=== PATIENT | female | born 1975 | race Caucasian/White ===

== ENCOUNTER → 2019-07-31 08:30 | Outpatient (CLI) | payer BC, SELFPAY ==
--- NOTE | 2019-07-31 | DI.MG.S_ITS ---
BILATERAL DIGITAL SCREENING MAMMOGRAM 3D/2D WITH CAD: 07/31/2019 CLINICAL: Routine screening. Comparison is made to exam dated: 08/15/2017 [facility]. The tissue of both breasts is extremely dense, which lowers the sensitivity of mammography. Current study was also evaluated with a Computer Aided Detection (CAD) system. There are regional calcifications in the right breast at 11 o'clock middle depth. There are grouped calcifications in the left breast at 4 o'clock posterior depth. No other significant masses or calcifications are seen in either breast. IMPRESSION: INCOMPLETE: NEEDS ADDITIONAL IMAGING EVALUATION The regional calcifications in the right breast at 11 o'clock middle depth are indeterminate. Spot magnification views are recommended. The grouped calcifications in the left breast at 4 o'clock posterior depth are indeterminate. Spot magnification views are recommended. This exam was interpreted at Station ID: [id number]. NOTE: For mammograms, a report in lay terms will be sent to the patient. Approximately 15% of breast malignancies will not be visualized mammographically. In the management of a palpable breast mass, a negative mammogram must not discourage biopsy of a clinically suspicious lesion. Electronically Signed By: Melita covarrubias/matt:07/31/2019 09:30:51 letter sent: Additional Imaging Needed ACR BI-RADS Category 0: Incomplete 3340F
== END ==
PROVIDERS: PCP Family Medicine; Visit Provider Family Medicine
DX: Z12.31 Encounter for screening mammogram for malignant neoplasm of breast (principal)
CPT/HCPCS: 77063; 77067

== ENCOUNTER → 2019-08-19 14:05 | Outpatient (CLI) | payer BC, SELFPAY ==
--- NOTE | 2019-08-19 | DI.MG.S_ITS ---
BILATERAL DIGITAL DIAGNOSTIC MAMMOGRAM 3D/2D WITH ADDITIONAL VIEWS: 08/19/2019 CLINICAL: Bilateral Additional evaluation requested from prior study. Comparison is made to exams dated: 07/31/2019 mammogram and 08/15/2017 mammogram - [facility]. The tissue of both breasts is extremely dense, which lowers the sensitivity of mammography. There are grouped fine punctate calcifications in the right breast at 12 o'clock middle depth. There are regional fine calcifications in the left breast at 4 o'clock posterior depth. No other significant masses or calcifications are seen in either breast. IMPRESSION: PROBABLY BENIGN The grouped fine punctate calcifications in the right breast at 12 o'clock middle depth resemble milk of calcium and are probably benign. A follow-up mammogram in 6 months is recommended. The regional fine calcifications in the left breast at 4 o'clock posterior depth are probably benign. A follow-up in 6 months is recommended. A follow-up mammogram in 6 months is recommended to demonstrate stability. This exam was interpreted at Station ID: [id number]. NOTE: For mammograms, a report in lay terms will be sent to the patient. Approximately 15% of breast malignancies will not be visualized mammographically. In the management of a palpable breast mass, a negative mammogram must not discourage biopsy of a clinically suspicious lesion. Electronically Signed By: Francisco muñoz/matt:08/19/2019 15:15:26 letter sent: Followup Recommended ACR BI-RADS Category 3: Probably benign [id number]
== END ==
PROVIDERS: PCP Family Medicine; Visit Provider Family Medicine
DX: R92.8 Other abnormal and inconclusive findings on diagnostic imaging of breast (principal); R92.1 Mammographic calcification found on diagnostic imaging of breast
CPT/HCPCS: 77066; G0279

== ENCOUNTER → 2020-03-18 09:11 | Outpatient (CLI) | payer BC, SELFPAY ==
--- NOTE | 2020-03-18 09:14 | DI.MG.S_ITS ---
BILATERAL DIGITAL DIAGNOSTIC MAMMOGRAM 3D/2D SHORT-TERM FOLLOW-UP: 03/18/2020 CLINICAL: Short term follow up bilaterally. Comparison is made to exams dated: 08/19/2019 mammogram, 07/31/2019 mammogram, and 08/15/2017 mammogram - [facility]. The tissue of both breasts is extremely dense, which lowers the sensitivity of mammography. There is a 1.8 cm irregular focal asymmetry with an obscured margin in the right breast at 1 o'clock middle depth. There also are stable regional calcifications in the right breast at 11 o'clock middle depth. There are stable grouped calcifications in the left breast at 4 o'clock posterior depth. No other significant masses or calcifications are seen in either breast. IMPRESSION: INCOMPLETE: NEEDS ADDITIONAL IMAGING EVALUATION The 1.8 cm irregular focal asymmetry in the right breast at 1 o'clock middle depth likely represents a cyst and is indeterminate. An ultrasound is recommended and is scheduled for 03/19/20. The stable regional calcifications in the right breast at 11 o'clock middle depth are probably benign. The stable grouped calcifications in the left breast at 4 o'clock posterior depth are probably benign. Future imaging is recommended as follows: 09/17/2020 mammogram follow up for the bilateral regional breast calcifications. This exam was interpreted at Station ID: [id number]. NOTE: For mammograms, a report in lay terms will be sent to the patient. Approximately 15% of breast malignancies will not be visualized mammographically. In the management of a palpable breast mass, a negative mammogram must not discourage biopsy of a clinically suspicious lesion. Electronically Signed By: Melita Murillo M.D. lk/:03/18/2020 10:26:12 ACR BI-RADS Category 0: Incomplete 3340F
== END ==
PROVIDERS: PCP Family Medicine; Referring Provider Family Medicine; Visit Provider Family Medicine
DX: R92.8 Other abnormal and inconclusive findings on diagnostic imaging of breast (principal); R92.1 Mammographic calcification found on diagnostic imaging of breast; N64.89 Other specified disorders of breast
CPT/HCPCS: 77066; G0279

== ENCOUNTER → 2020-03-19 12:31 | Outpatient (CLI) | payer BC, SELFPAY ==
--- NOTE | 2020-03-19 12:34 | DI.US.S_ITS ---
ULTRASOUND OF RIGHT BREAST: 03/19/2020 CLINICAL: Rt breast density on mammo. Comparison is made to exams dated: 03/18/2020 mammogram, 08/19/2019 mammogram, 07/31/2019 mammogram, and 08/15/2017 mammogram - [facility]. Real-time ultrasound of the right breast was performed. Leggett scale images of the real-time examination were reviewed. There is a benign irregular area of fibrocystic tissue in the right breast at 1 o'clock posterior depth. This correlates with mammography findings. Color flow imaging demonstrates that there is no vascularity present. IMPRESSION: BENIGN There is no sonographic evidence of malignancy. The irregular area of fibrocystic tissue in the right breast is consistent with fibrocystic change and is benign. Return to annual mammogram screening schedule for the right breast is recommended. Future imaging is recommended as follows: 09/17/2020 bilateral mammogram to follow up calcifications. This exam was interpreted at Station ID: [id number]. Electronically Signed By: Karma camarena/:03/22/2020 09:27:31 letter sent: Followup Recommended Ultrasound BI-RADS: 2 Benign
== END ==
PROVIDERS: PCP Family Medicine; Referring Provider Family Medicine; Visit Provider Family Medicine
DX: R92.8 Other abnormal and inconclusive findings on diagnostic imaging of breast (principal); N60.11 Diffuse cystic mastopathy of right breast
CPT/HCPCS: 76642

== ENCOUNTER → 2020-09-08 09:46 | Outpatient (CLI) | payer BC, SELFPAY ==
[2020-09-08 10:20] LABS: Cholesterol 226 mg/dL (140-199); HDL Cholesterol 64 mg/dL (40-60); LDL Cholesterol Calculated 150 mg/dL (<100); Triglycerides 62 mg/dL (35-150)
== END ==
PROVIDERS: PCP Family Medicine; Referring Provider Family Medicine; Visit Provider Family Medicine
DX: E78.5 Hyperlipidemia, unspecified (principal)
CPT/HCPCS: 36415; 80061

== ENCOUNTER → 2020-09-14 08:41 | Outpatient (CLI) | payer BC, SELFPAY ==
--- NOTE | 2020-09-14 08:42 | DI.MG.S_ITS ---
BILATERAL DIGITAL DIAGNOSTIC MAMMOGRAM 3D/2D SHORT-TERM FOLLOW-UP: 09/14/2020 CLINICAL: Short term follow up for bilateral breasts. Comparison is made to exams dated: 03/18/2020 mammogram, 08/19/2019 mammogram, 07/31/2019 mammogram, and 08/15/2017 mammogram - [facility]. The tissue of both breasts is extremely dense, which lowers the sensitivity of mammography. There are stable regional calcifications in the right breast at 11 o'clock middle depth. There are stable grouped calcifications in the left breast at 4 o'clock posterior depth. No other significant masses or calcifications are seen in either breast. IMPRESSION: PROBABLY BENIGN 1) Stable regional calcifications in the right breast at 11 o'clock middle depth are probably benign. 2) Stable grouped calcifications in the left breast at 4 o'clock posterior depth are probably benign. A follow-up mammogram in 6 months is recommended to demonstrate stability. Exam findings were conveyed to the patient. This exam was interpreted at Station ID: [id number]. NOTE: For mammograms, a report in lay terms will be sent to the patient. Approximately 15% of breast malignancies will not be visualized mammographically. In the management of a palpable breast mass, a negative mammogram must not discourage biopsy of a clinically suspicious lesion. Electronically Signed By: Jonn Day M.D. [facility] [place]/:09/14/2020 09:40:28 letter sent: Followup Recommended ACR BI-RADS Category 3: Probably benign 3343F
== END ==
PROVIDERS: PCP Family Medicine; Referring Provider Family Medicine; Visit Provider Family Medicine
DX: R92.8 Other abnormal and inconclusive findings on diagnostic imaging of breast (principal); R92.1 Mammographic calcification found on diagnostic imaging of breast
CPT/HCPCS: 77066; G0279

== ENCOUNTER → 2021-02-16 09:19 | Outpatient (CLI) | payer BC, SELFPAY ==
--- NOTE | 2021-02-16 09:20 | DI.MG.S_ITS ---
BILATERAL DIGITAL DIAGNOSTIC MAMMOGRAM 3D/2D SHORT-TERM FOLLOW-UP: 02/16/2021 CLINICAL: Short term follow up for bilateral breasts. Comparison is made to exams dated: 09/14/2020 mammogram, 03/18/2020 mammogram, 08/19/2019 mammogram, and 07/31/2019 mammogram - [facility]. The tissue of both breasts is extremely dense, which lowers the sensitivity of mammography. There are regional fine calcifications in the right breast at 11 o'clock middle depth. These are less prominent and decreased in number. There are grouped fine calcifications in the left breast at 4 o'clock posterior depth. These are less prominent and decreased in number. No other significant masses or calcifications are seen in either breast. IMPRESSION: INCOMPLETE: NEEDS ADDITIONAL IMAGING EVALUATION The regional fine calcifications in the right breast at 11 o'clock middle depth are probably benign. A follow-up in 6 months is recommended. The grouped fine calcifications in the left breast at 4 o'clock posterior depth are probably benign. A follow-up in 6 months is recommended. There is no abnormality seen in the right breast to correspond with the palpable abnormality in the superior lateral quadrant. Ultrasound is recommended for full evaluation of this area. This was performed immediately following this exam. Future imaging is recommended as follows: 08/18/2021 mammogram. This exam was interpreted at Station ID: [id number]. NOTE: For mammograms, a report in lay terms will be sent to the patient. Approximately 15% of breast malignancies will not be visualized mammographically. In the management of a palpable breast mass, a negative mammogram must not discourage biopsy of a clinically suspicious lesion. Electronically Signed By: Karma camarena/:02/16/2021 10:15:34 ACR BI-RADS Category 0: Incomplete 3340F
--- NOTE | 2021-02-16 12:42 | DI.US.S_ITS ---
LIMITED ULTRASOUND OF RIGHT BREAST: 02/16/2021 CLINICAL: Palpable area lower outer quadrant right breast. Comparison is made to exams dated: 02/16/2021 mammogram, 09/14/2020 mammogram, 03/19/2020 ultrasound, 03/18/2020 mammogram, 08/19/2019 mammogram, and 07/31/2019 mammogram - [facility]. Color flow and real-time ultrasound of the right breast lower outer quadrant were performed. Leggett scale images of the real-time examination were reviewed. There is a 0.5 cm x 0.9 cm x 0.6 cm cyst with a septated internal wall within a larger area of dense fibroglandular tissue in the right breast at 7 o'clock middle depth. Color flow imaging demonstrates that there is no vascularity present. IMPRESSION: PROBABLY BENIGN The 0.9 cm cyst in the right breast is consistent with a minimally complicated cyst and is probably benign. A follow-up right ultrasound in 6 months is recommended to demonstrate stability. Findings and recommendations were conveyed to the patient at time of exam. This exam was interpreted at Station ID: [id number]. Electronically Signed By: Karma camarena/:02/16/2021 13:48:43 letter sent: Followup Recommended Ultrasound BI-RADS: 3 Probably benign
== END ==
PROVIDERS: PCP Family Medicine; Referring Provider Family Medicine; Visit Provider Family Medicine
DX: R92.8 Other abnormal and inconclusive findings on diagnostic imaging of breast (principal); R92.1 Mammographic calcification found on diagnostic imaging of breast; N60.01 Solitary cyst of right breast
CPT/HCPCS: 76642; 77066; G0279

== ENCOUNTER → 2021-08-18 12:34 | Outpatient (CLI) | payer BC, SELFPAY ==
--- NOTE | 2021-08-18 12:35 | DI.US.S_ITS ---
LIMITED ULTRASOUND OF RIGHT BREAST: 08/18/2021 CLINICAL: Patient returns today to evaluate a focal asymmetry in the right breast. Comparison is made to exams dated: 08/18/2021 mammogram, 02/16/2021 ultrasound, 02/16/2021 mammogram, 09/14/2020 mammogram, 03/18/2020 mammogram, and 03/19/2020 [facility]. Color flow and real-time ultrasound of the right breast 6-9 o'clock region were performed on the areas of interest. There is a 0.8 cm x 0.8 cm x 0.5 cm oval cyst with a septated internal wall in the right breast at 7 o'clock middle depth 7 cm from the nipple. This oval cyst is hypoechoic with posterior acoustic enhancement. This abnormality is not significantly changed. Color flow imaging demonstrates that there is no vascularity present. There also is a 0.7 cm x 0.6 cm x 0.4 cm oval cyst with a septated internal wall in the right breast at 6 o'clock anterior depth 3 cm from the nipple. This oval cyst is hypoechoic with a well-defined boundary and posterior acoustic enhancement. Color flow imaging demonstrates that there is no vascularity present. Additionally, there is a 0.8 cm x 0.5 cm x 0.6 cm cluster of oval cysts with a septated internal wall in the right breast at 7 o'clock middle depth 6 cm from the nipple. This cluster of oval cysts is hypoechoic with posterior acoustic enhancement. Color flow imaging demonstrates that there is no vascularity present. In addition, there is a 0.9 cm x 0.5 cm x 0.8 cm oval cyst with a septated internal wall in the right breast at 9 o'clock middle depth 4 cm from the nipple. This oval cyst is hypoechoic with a well-defined boundary and posterior acoustic enhancement. Color flow imaging demonstrates that there is no vascularity present. IMPRESSION: PROBABLY BENIGN The 0.8 cm x 0.8 cm x 0.5 cm oval cyst in the right breast at 7 o'clock middle depth is consistent with a complicated cyst and is probably benign. A follow-up ultrasound in 6 months is recommended. The 0.7 cm x 0.6 cm x 0.4 cm oval cyst in the right breast at 6 o'clock anterior depth is consistent with a complicated cyst and is probably benign. A follow-up ultrasound in 6 months is recommended. The 0.8 cm x 0.5 cm x 0.6 cm cluster of oval cysts in the right breast at 7 o'clock middle depth is probably benign. A follow-up ultrasound in 6 months is recommended. The 0.9 cm x 0.5 cm x 0.8 cm oval cyst in the right breast at 9 o'clock middle depth is consistent with a complicated cyst and is probably benign. A follow-up ultrasound in 6 months is recommended. A follow-up ultrasound in 6 months is recommended to demonstrate stability. This exam was interpreted at Station ID: [id number]. Electronically Signed By: Francisco Diaz M.D. ddjaneth/:08/18/2021 15:11:10 letter sent: Followup Recommended Ultrasound BI-RADS: 3 Probably benign
--- NOTE | 2021-08-18 12:35 | DI.MG.S_ITS ---
BILATERAL DIGITAL DIAGNOSTIC MAMMOGRAM 3D/2D: 08/18/2021 CLINICAL: Short term follow up for bilateral breasts. Comparison is made to exams dated: 02/16/2021 ultrasound, 02/16/2021 mammogram, 09/14/2020 mammogram, 03/19/2020 ultrasound, 07/31/2019 mammogram, and 08/19/2019 mammogram - [facility]. The tissue of both breasts is extremely dense, which lowers the sensitivity of mammography. There are stable regional fine calcifications in the right breast at 11 o'clock middle depth. There are stable grouped fine calcifications in the left breast at 4 o'clock posterior depth. No other significant masses or calcifications are seen in either breast. IMPRESSION: INCOMPLETE: NEEDS ADDITIONAL IMAGING EVALUATION The right and left breast calcifications are stable compared to prior studies dating back to 08/19/2019 are benign. Ultrasound is recommended for followup of the complicated right breast cyst seen on the prior study. Ultrasound will be performed immediately following the current exam. This exam was interpreted at Station ID: [id number]. NOTE: For mammograms, a report in lay terms will be sent to the patient. Approximately 15% of breast malignancies will not be visualized mammographically. In the management of a palpable breast mass, a negative mammogram must not discourage biopsy of a clinically suspicious lesion. Electronically Signed By: Francisco Diaz M.D. ddjaneth/:08/18/2021 13:52:18 ACR BI-RADS Category 0: Incomplete 3340F
== END ==
PROVIDERS: PCP Family Medicine; Referring Provider Family Medicine; Visit Provider Family Medicine
DX: R92.2 Inconclusive mammogram (principal); N63.20 Unspecified lump in the left breast, unspecified quadrant; N63.13 Unspecified lump in the right breast, lower outer quadrant
CPT/HCPCS: 76642; 77066; G0279

== ENCOUNTER → 2022-03-03 08:53 | Outpatient (CLI) | payer BC, SELFPAY ==
--- NOTE | 2022-03-03 08:54 | DI.US.S_ITS ---
ULTRASOUND OF RIGHT BREAST: 03/03/2022 CLINICAL: 6 month follow-up of cysts. Comparison is made to exams dated: 08/18/2021 ultrasound, 08/18/2021 mammogram, 02/16/2021 ultrasound, 02/16/2021 mammogram, 09/14/2020 mammogram, and 03/19/2020 ultrasound - [facility]. Ultrasound of the right breast was performed on the area of interest. Leggett scale images of the real-time examination were reviewed. There is a stable 0.5 cm x 0.9 cm x 0.6 cm cyst with a septated internal wall in the right breast at 7 o'clock middle depth. Color flow imaging demonstrates that there is no vascularity present. IMPRESSION: PROBABLY BENIGN The stable 0.5 cm x 0.9 cm x 0.6 cm cyst in the right breast is consistent with a complicated cyst and is probably benign. A follow-up ultrasound in 6 months is recommended to demonstrate stability. This exam was interpreted at Station ID: [id number]. SUMMARY: The patient will be due for her bilateral mammogram at this time. Electronically Signed By: Melita covarrubias/:03/03/2022 10:25:24 letter sent: Followup Recommended Ultrasound BI-RADS: 3 Probably benign
== END ==
PROVIDERS: PCP Family Medicine; Referring Provider Family Medicine; Visit Provider Family Medicine
DX: R92.8 Other abnormal and inconclusive findings on diagnostic imaging of breast (principal); N60.01 Solitary cyst of right breast
CPT/HCPCS: 76642

== ENCOUNTER → 2022-08-22 09:23 | Outpatient (CLI) | payer BC, SELFPAY ==
--- NOTE | 2022-08-22 09:24 | DI.MG.S_ITS ---
BILATERAL DIGITAL DIAGNOSTIC MAMMOGRAM 3D/2D: 08/22/2022 CLINICAL: Short term follow up of the right breast, due for bilateral imaging. Comparison is made to exams dated: 03/03/2022 ultrasound, 08/18/2021 ultrasound, 08/18/2021 mammogram, 02/16/2021 ultrasound, and 02/16/2021 mammogram - [facility]. Both breasts are extremely dense, which lowers the sensitivity of mammography (category d />75% glandular tissue). There are benign regional fine calcifications in the right breast at 11 o'clock middle depth. These are less prominent. There are stable benign grouped fine calcifications in the left breast at 4 o'clock posterior depth. These are less prominent. No other significant masses or calcifications are seen in either breast. IMPRESSION: INCOMPLETE: NEEDS ADDITIONAL IMAGING EVALUATION Stable to less prominent, benign appearing calcifications bilaterally. There is no mammographic evidence of malignancy. An ultrasound will be performed for the right breast ultrasound only finding to confirm stability immediately following this exam. This exam was interpreted at Station ID: [id number]. NOTE: For mammograms, a report in lay terms will be sent to the patient. Approximately 15% of breast malignancies will not be visualized mammographically. In the management of a palpable breast mass, a negative mammogram must not discourage biopsy of a clinically suspicious lesion. Electronically Signed By: Karma camarena/:08/23/2022 15:32:05 ACR BI-RADS Category 0: Incomplete 3340F
--- NOTE | 2022-08-22 09:24 | DI.US.S_ITS ---
ULTRASOUND OF RIGHT BREAST: 08/22/2022 CLINICAL: 6 month follow-up of cysts. Comparison is made to exams dated: 08/22/2022 mammogram, 03/03/2022 ultrasound, 08/18/2021 ultrasound, 08/18/2021 mammogram, and 02/16/2021 ultrasound - [facility]. Color flow ultrasound of the right breast was performed. Leggett scale images of the real-time examination were reviewed. There is a 1.1 cm x 1 cm x 0.8 cm cyst with a septated internal wall in the right breast at 9 o'clock anterior depth 4 cm from the nipple. This abnormality is increased in size. Color flow imaging demonstrates that there is no vascularity present. There also is a benign 0.7 cm x 0.8 cm x 0.5 cm cyst in the right breast at 7 o'clock middle depth 7 cm from the nipple. This abnormality is less prominent and now simple. Color flow imaging demonstrates that there is no vascularity present. Additionally, there is a stable benign 6 mm cyst in the right breast at 6 o'clock anterior depth. Color flow imaging demonstrates that there is no vascularity present. IMPRESSION: PROBABLY BENIGN The 1.1 cm x 1 cm x 0.8 cm cyst in the right breast at 9 o'clock anterior depth most likely is a complicated cyst and is probably benign. A follow-up ultrasound in 6 months is recommended. The 0.7 cm x 0.8 cm x 0.5 cm cyst in the right breast at 7 o'clock middle depth is consistent with a simple cyst and is benign. The stable 6 mm cyst in the right breast at 6 o'clock anterior depth is benign. Findings and recommendations were conveyed to the patient at time of exam. This exam was interpreted at Station ID: [id number]. Electronically Signed By: Karma camarena/:08/22/2022 10:57:33 letter sent: Followup Recommended Ultrasound BI-RADS: 3 Probably benign
== END ==
PROVIDERS: PCP Family Medicine; Referring Provider Family Medicine; Visit Provider Family Medicine
DX: N60.01 Solitary cyst of right breast; R92.8 Other abnormal and inconclusive findings on diagnostic imaging of breast; R92.1 Mammographic calcification found on diagnostic imaging of breast
CPT/HCPCS: 76642; 77066; G0279

== ENCOUNTER → 2023-02-21 11:06 | Outpatient (CLI) | payer BC, SELFPAY ==
--- NOTE | 2023-02-21 11:08 | DI.US.S_ITS ---
LIMITED ULTRASOUND OF RIGHT BREAST AND AXILLA: 02/21/2023 CLINICAL: Patient returns today to evaluate a focal asymmetry in the right breast. Comparison is made to exams dated: 08/22/2022 ultrasound, 08/22/2022 mammogram, 03/03/2022 ultrasound, 08/18/2021 ultrasound, 08/18/2021 mammogram, and 02/16/2021 ultrasound - [facility]. Color flow and real-time ultrasound of the right breast 9-10 o'clock, and axilla regions were performed. Leggett scale images of the real-time examination were reviewed. There is a benign 0.7 cm x 0.7 cm x 0.6 cm complicated cyst with a septated internal wall in the right breast at 10 o'clock anterior depth 3 cm from the nipple. Color flow imaging demonstrates that there is no vascularity present. This is likely the same cyst that was documented at 9:00 4 cm from the nipple based on its appearance and is slightly decreased in size. There also is a benign 1 cm simple cyst in the right breast at 9 o'clock middle depth 3 cm from the nipple. Prominent duct at 9:00 4 cm from the nipple. No intraductal mass. No nipple discharge. No significant abnormalities were seen sonographically in the right axilla. IMPRESSION: BENIGN There is no sonographic evidence of malignancy. The 0.7 cm complicated cyst in the right breast at 10 o'clock anterior depth demonstrates a decrease in size and is benign. The 1 cm simple cyst in the right breast at 9 o'clock middle depth is benign. Prominent duct in the right breast is benign. Exam findings were conveyed to the patient. A 1 year screening mammogram is recommended. This exam was interpreted at Station ID: [id number]. Electronically Signed By: Jonn Day M.D. [facility] [place]/:02/21/2023 12:53:33 letter sent: Normal Exam Ultrasound BI-RADS: 2 Benign
== END ==
PROVIDERS: PCP Family Medicine; Referring Provider Family Medicine; Visit Provider Family Medicine
DX: N60.01 Solitary cyst of right breast (principal)
CPT/HCPCS: 76642

== ENCOUNTER → 2023-07-05 07:33 | Outpatient (CLI) | payer BC, SELFPAY ==
[2023-07-05 08:54] LABS: Cholesterol 260 mg/dL (140-199); Glucose 87 mg/dL (70-100); HDL Cholesterol 70 mg/dL (40-60); LDL Cholesterol Calculated 176 mg/dL (<100); Triglycerides 70 mg/dL (35-150)
[2023-07-06 14:58] LABS: Fecal Immunochemical Test Negative (Negative)
== END ==
PROVIDERS: PCP Family Medicine; Referring Provider Family Medicine; Visit Provider Family Medicine
DX: Z13.9 Encounter for screening, unspecified (principal); Z12.11 Encounter for screening for malignant neoplasm of colon
CPT/HCPCS: 36415; 80061; 82274; 82947

== ENCOUNTER → 2023-12-11 12:19 | Outpatient (CLI) | payer BC, SELFPAY ==
--- NOTE | 2023-12-11 12:20 | DI.MG.S_ITS ---
BILATERAL DIGITAL SCREENING MAMMOGRAM 3D/2D WITH CAD: 12/11/2023 CLINICAL: Routine screening. Comparison is made to exams dated: 08/22/2022 mammogram, 08/18/2021 mammogram, and 02/16/2021 [facility]. Both breasts are extremely dense, which lowers the sensitivity of mammography (category d />75% glandular tissue). Current study was also evaluated with a Computer Aided Detection (CAD) system. No significant masses, calcifications, or other findings are seen in either breast. There has been no significant interval change. IMPRESSION: NEGATIVE There is no mammographic evidence of malignancy. A 1 year screening mammogram is recommended. Future imaging is recommended as follows: 02/22/2024 screening mammogram. Based on the Tyrer Cuzick model (a risk assessment model) the patient's lifetime risk is 18.5% and her 10 year risk is 4.5%. According to the ACR, ACS, and NCCN guidelines, an annual breast MRI exam along with mammogram is recommended if the patient's lifetime risk is 20% or greater. This exam was interpreted at Station ID: [id number]. NOTE: For mammograms, a report in lay terms will be sent to the patient. Approximately 15% of breast malignancies will not be visualized mammographically. In the management of a palpable breast mass, a negative mammogram must not discourage biopsy of a clinically suspicious lesion. Electronically Signed By: Samuel menchaca/matt:12/11/2023 14:07:46 letter sent: Normal Exam ACR BI-RADS Category 1: Negative [id number]
== END ==
LOC: MAMMO 12:19
PROVIDERS: PCP Family Medicine; Referring Provider Family Medicine; Visit Provider Family Medicine
DX: Z12.31 Encounter for screening mammogram for malignant neoplasm of breast (principal); R92.343 Mammographic extreme density, bilateral breasts
CPT/HCPCS: 77063; 77067

== ENCOUNTER → 2024-08-11 07:35 | Outpatient (CLI) | payer BC, SELFPAY ==
[2024-08-11 09:38] LABS: Cholesterol 254 mg/dL (140-199); Glucose 88 mg/dL (70-100); HDL Cholesterol 86 mg/dL (40-60); LDL Cholesterol Calculated 157 mg/dL (<100); Triglycerides 54 mg/dL (35-150)
== END ==
PROVIDERS: PCP Family Medicine; Referring Provider Family Medicine; Visit Provider Family Medicine
DX: Z13.220 Encounter for screening for lipoid disorders (principal); Z13.1 Encounter for screening for diabetes mellitus; Z86.39 Personal history of other endocrine, nutritional and metabolic disease
CPT/HCPCS: 36415; 80061; 82947

== ENCOUNTER → 2024-08-19 09:36 | Outpatient (CLI) | payer BC, SELFPAY ==
[2024-08-20 11:36] LABS: Fecal Immunochemical Test Negative (Negative)
== END ==
PROVIDERS: PCP Family Medicine; Referring Provider Family Medicine; Visit Provider Family Medicine
DX: Z12.11 Encounter for screening for malignant neoplasm of colon (principal)
CPT/HCPCS: 82274

== ENCOUNTER → 2024-12-13 07:52 | Outpatient (CLI) | payer BC, SELFPAY ==
--- NOTE | 2024-12-13 | DI.MG.S_ITS ---
BILATERAL DIGITAL SCREENING MAMMOGRAM 3D/2D WITH CAD: 12/13/2024 CLINICAL: Routine screening. Comparison is made to exams dated: 12/11/2023 mammogram, 08/22/2022 mammogram, 08/18/2021 mammogram, 02/16/2021 mammogram, and 09/14/2020 mammogram - [facility]. The breasts are extremely dense, which lowers the sensitivity of mammography (category d />75% glandular tissue). Current study was also evaluated with a Computer Aided Detection (CAD) system. No significant masses, calcifications, or other findings are seen in either breast. There has been no significant interval change. IMPRESSION: NEGATIVE There is no mammographic evidence of malignancy. A 1 year screening mammogram is recommended. Based on the Tyrer Cuzick model (a risk assessment model) the patient's lifetime risk is 16.8% and her 10 year risk is 4.2%. According to the ACR, ACS, and NCCN guidelines, an annual breast MRI exam along with mammogram is recommended if the patient's lifetime risk is 20% or greater. This exam was interpreted at Station ID: [id number]. NOTE: For mammograms, a report in lay terms will be sent to the patient. Approximately 15% of breast malignancies will not be visualized mammographically. In the management of a palpable breast mass, a negative mammogram must not discourage biopsy of a clinically suspicious lesion. Electronically Signed By: Flor Edmond M.D., Ph.D. ana/matt:12/16/2024 15:59:34 letter sent: Normal Exam ACR BI-RADS Category 1: Negative
== END ==
PROVIDERS: PCP Family Medicine; Referring Provider Family Medicine; Visit Provider Family Medicine
DX: Z12.31 Encounter for screening mammogram for malignant neoplasm of breast (principal); R92.343 Mammographic extreme density, bilateral breasts
CPT/HCPCS: 77063; 77067